=== PATIENT | male | born 1960 | race African-American/Black ===

== ENCOUNTER 2023-08-21 00:33 | Emergency (ER) | payer OTHER ==
[~2023-08-21] VITALS: Ht 185.4 cm; Wt 87.0 kg
[2023-08-21 00:44] VITALS: O2SAT 98
[2023-08-21] MEDS ORDERED: FUROSEMIDE 40MG/4ML VIAL IV ONE (03:45)
[2023-08-21 04:15] LABS: BASOPHILS % 0.8 % (0.0-2.0); EOSINOPHILS % 1.4 % (0.0-5.0); HEMATOCRIT. 48.1 % (42.0-52.0); HEMOGLOBIN. 15.7 g/dL (14.0-18.0); LYMPHOCYTES % 9.4 % (20.0-50.0); MEAN CORPUSCULAR HEMOGLOBIN 28.7 pg (28.0-32.0); MEAN CORPUSCULAR HGB CONC 32.6 g/dL (31.0-37.0); MEAN CORPUSCULAR VOLUME 88.1 fL (80.0-94.0); MEAN PLATELET VOLUME 8.8 fl (7.4-10.4); MONOCYTES % 5.4 % (2.0-8.0); PLATELET 149 x1000/uL (130-400); RED BLOOD CELL COUNT 5.46 mill/uL (4.7-6.1); RED CELL DISTRIBUTION WIDTH 16.5 % (11.6-14.6); WHITE BLOOD COUNT 9.1 x1000/uL (4.5-11.0)
[2023-08-21 04:31] LABS: ALANINE AMINOTRANSFERASE 16 IU/L (10-49); ALBUMIN 4.4 g/dL (3.2-4.8); ASPARTATE AMINOTRANSFERASE 20 IU/L (<34); BILIRUBIN TOTAL 1.3 mg/dL (0.1-1.0); CALCIUM 9.3 mg/dL (8.7-10.4); CARBON DIOXIDE 28 mEq/L (21-32); CHLORIDE 107 mEq/L (98-107); CREATININE 0.9 mg/dL (0.6-1.3); GLUCOSE 143 mg/dL (70-105); POTASSIUM 4.4 mEq/L (3.5-5.1); PROTEIN TOTAL 7.4 g/dL (6.0-8.3); SODIUM 140 mEq/L (136-145); TROPONIN I HIGH SENSITIVITY 11 ng/L (3.0-53); UREA NITROGEN BLOOD 10 mg/dL (9-23)
[2023-08-21 06:06] LABS: TROPONIN I HIGH SENSITIVITY 9 ng/L (3.0-53)
[2023-08-21] MEDS: FUROSEMIDE 40MG/4ML VIAL IV NR (08:18)
[2023-08-21 09:24] VITALS: BP 130/78; PULSE 88; RESP 17; TEMP 97.8
== END 2023-08-21 10:48 | disposition short-term general hospital (02) ==
LOC: ER 00:33
DX: I50.9 Heart failure, unspecified (principal); J44.9 Chronic obstructive pulmonary disease, unspecified; E11.9 Type 2 diabetes mellitus without complications
CPT/HCPCS: 80053; 83880; 83605; 85025; 84484; 36415; 71045; 93005; 96374; 99285; J1940; Z7610 ×3

== ENCOUNTER 2025-03-17 09:56 | Emergency (ER) | payer OTHER ==
[~2025-03-17] VITALS: Ht 172.7 cm; Wt 114.0 kg
[2025-03-17 09:57] VITALS: O2SAT 99
[2025-03-17] MEDS: ACETAMINOPHEN 325MG TABLET PO ONE (11:01)
[2025-03-17 11:08] LABS: BASOPHILS % 0.6 % (0.0-2.0); EOSINOPHILS % 2.0 % (0.0-5.0); HEMATOCRIT. 46.0 % (42.0-52.0); HEMOGLOBIN. 14.5 g/dL (14.0-18.0); LYMPHOCYTES % 13.4 % (20.0-50.0); MEAN PLATELET VOLUME 8.9 fl (7.4-10.4); MONOCYTES % 8.1 % (2.0-8.0); NEUTROPHILS % 75.9 % (40.0-76.0); PLATELET 139 x1000/uL (130-400); RED BLOOD CELL COUNT 6.03 mill/uL (4.7-6.1); RED CELL DISTRIBUTION WIDTH 17.8 % (11.6-14.6)
[2025-03-17 11:16] LABS: CREATININE 1.0 mg/dL (0.6-1.3); UREA NITROGEN BLOOD 13 mg/dL (9-23)
[2025-03-17 11:17] LABS: TROPONIN I HIGH SENSITIVITY 8 ng/L (3.0-53)
[2025-03-17] MEDS: SODIUM CHLORIDE 0.9% 500 ML IV ONE (11:18)
[2025-03-17 14:37] VITALS: BP 127/89; PULSE 84; RESP 19; TEMP 36.9; O2SAT 97
== END 2025-03-17 14:38 | disposition home or self-care (01) ==
LOC: ER 10:06
DX: E11.649 Type 2 diabetes mellitus with hypoglycemia without coma (principal); J44.89 Other specified chronic obstructive pulmonary disease; I50.9 Heart failure, unspecified
CPT/HCPCS: 99285; 96360; 71045; 80048; 82962; 85025; 84484; 36415; J7040